=== PATIENT | female | born 1975 | race Caucasian/White ===

== ENCOUNTER 2023-11-07 21:37 | Emergency (ER) | payer OTHER, SELFPAY ==
[2023-11-07 21:39] VITALS: BP 141/85
[2023-11-07 21:58] LABS: % Basophils 0.2 % (0-2); % Eosinophils 0.6 % (0-6); % Immature Granulocytes 0.2 % (0-0.5); % Lymphocytes 22.8 % (20.5-51.1); % Monocytes 10.6 % (1.7-9.3); % Neutrophils 65.6 % (42.2-75.2); Absolute Lymphocytes 1.2 10^3/uL (1.2-3.4); Absolute Monocytes 0.6 10^3/uL (0.1-0.6); Absolute Neutrophils 3.5 10^3/uL (1.4-6.5); Hematocrit 33.6 % (37.0-47.0); Hemoglobin 11.7 g/dL (12.0-16.0); Mean Corp Hgb Conc. 34.8 g/dL (33.0-37.0); Mean Corpuscular Hgb 29.9 pg (27.0-31.0); Mean Corpuscular Volume 85.9 fL (81.0-99.0); Mean Platelet Volume 10.1 fL (7.4-10.4); Nucleated Red Blood Cells % 0 %; Platelet Count 199 10^3/uL (130-400); Red Blood Cell Count 3.91 10^6/uL (4.20-5.40); Red Cell Dist. Width 12.7 % (11.5-14.5); White Blood Cell Count 5.4 10^3/uL (4.8-10.8)
[2023-11-07 22:12] LABS: COVID-19 Antigen Negative (Negative)
[2023-11-07 22:28] LABS: ALT (SGPT) 16 U/L (0-35); AST (SGOT) 22 U/L (14-36); Albumin 4.1 g/dl (3.5-5.0); Alkaline Phosphatase 59 U/L (38-126); Blood Urea Nitrogen 18 mg/dl (7-17); Calcium 9.3 mg/dl (8.4-10.2); Carbon Dioxide 24 mmol/L (22-30); Chloride 105 mmol/L (98-107); Glucose 100 mg/dl (70-99); Potassium 3.5 mmol/L (3.5-5.1); Sodium 135 mmol/L (135-145); Total Bilirubin 0.2 mg/dl (0.2-1.3); Total Protein 7.4 g/dl (6.3-8.2); eGFR > 60.00
--- NOTE | 2023-11-08 01:29 | ED.GENMED ---
History of Present Illness
General
Chief Complaint: Fever
Source: patient
Exam Limitations: none
Time Seen by Provider: 11/08/23 01:18
Travel History
Have you had any contact with someone who has COVID-19?: No
Do you have any symptoms of coronavirus? Fever > 100 degrees, chills, cough, shortness of breath, sore throat, loss of taste or smell, muscle aches, or headache?: Yes
Symptoms:: fever, cough
History of Present Illness
History of Present Illness:
This is a 48 year old female that comes in with multiple complaints. State that she started on Thursday with a cough. she started with a fever and the fever has been up and down. State that the cough is worse and she has left sided chest
pain. Sates that she feels that is is hard to breath and her Fever was 104.5 today. State that she used her nebulizer at 5pm and her rescue inhaler at 9pm just to get here. States that she feels SOB with the chest pain, has a headache and just feels
cold but no shaking. Denies any abd pain, nausea, vomiting, diarrhea, dizziness, urinary burning.
Past History
Past History
ED Past Medical History: Asthma, Cancer (Thyroid), HTN and Other (Migraines, Vertigo, [place] Palsy,IBS, )
ED Past Surgical History: Gynecological (partial hysterectomy) and Other (Thyroidectomy)
Social History
Tobacco: Former smoker
Alcohol: None
Personal: Single
Living: alone
Review of Systems
Review of Systems
All Other Systems: ROS reviewed and negative except as documented in HPI and ROS
Constitutional: Reports fever; Denies chills
EENT: Reports no symptoms
Respiratory: Reports cough and trouble breathing
Cardiac: Reports chest pain
ABD/GI: Reports no symptoms; Denies abdominal pain, nausea, vomiting or diarrhea
: Reports no symptoms; Denies dysuria, frequency or urgency
Musculoskeletal: Reports no symptoms
Skin: Reports no symptoms
Neurological: Reports headache; Denies dizzy
Psychiatric: Reports no symptoms
Phy Exam
General Physical Exam
General Presentation: no apparent distress
General age: appears stated age
General Skin: warm and dry
General Habitus: normal
General Hydration: appears well hydrated
ENT Exam
ENT Exam: TM's normal, pharynx normal and neck supple
Eye Exam
Eye Exam: EOMI
Cardiovascular Exam
Cardiovascular Exam: regular rate/rhythm, no edema, no murmur and normal peripheral pulses
Pulmonary Exam
Pulmonary Exam: no respiratory distress, no rales, chest non tender, no crackles, no rhonchi and other (Insp wheezing with cough that is course)
Gastrointestinal Exam
Gastrointestinal Exam: normal bowel sounds, non tender, soft, no organomegaly, no pulsatile mass and non distended
Musculoskeletal Exam
Musculoskeletal Exam: full ROM and no edema
Skin Exam
Skin Exam: normal color, warm/dry, no rash and no petechia
Psychiatric Exam
Psychiatric Exam: normal mood/affect
Course
Orders/Labs/Results
Orders:
Orders
11/07/23 21:43
CR Chest - 2 Views Urgent
Comment:
Reason For Exam: suspected infection
11/07/23 21:50
COVID-19 Antigen Urgent
Source: Nasal Swab
Complete Blood Count/With Diff Urgent
Comprehensive Metabolic Panel Urgent
Influenza A+B Rapid Molecular Urgent
JACOB Source: Nasal Swab
Specimen Description:
11/08/23 01:29
Electrocardiogram (*1) Urgent
Reason for Study: Chest Pain
EKG- Treatment ONCE
Acetaminophen [Tylenol] 1,000 mg PO NOW STA
Dexamethasone Sod Phosphate [Decadron] 20 mg IV NOW STA
Ipratropium/Albuterol Sulfate [Duoneb] 3 ml INH R NOW ONE
11/08/23 01:48
Lactate Level [Lactic Acid] Urgent
Troponin I Urgent
Blood Culture Q30M
JACOB Source: Blood/Venous
Specimen Description:
11/08/23 02:06
Urinalysis Reflex To Culture Urgent
Date Specimen was Collected: 11/08/23
Time Specimen was Collected: 02:04
Blood Culture Q30M
JACOB Source: Blood/Venous
Specimen Description:
11/08/23 02:49
Doxycycline [Vibramycin] 100 mg PO NOW STA
Abnormal Lab Results
11/07/23
21:50
RBC 3.91 L 10^6/uL
(4.20-5.40)
Hgb 11.7 L g/dL
(12.0-16.0)
Hct 33.6 L %
(37.0-47.0)
Monocytes % 10.6 H %
(1.7-9.3)
BUN 18 H mg/dl
(7-17)
Glucose 100 H mg/dl
(70-99)
11/07/23 21:50
11/07/23 21:50
H/H slightly low. Slight Dehydration. Glucose nonfasting. Troponin <0.012, COVID and Influenza negative, Urine negative for infection.
Lactic acid 0.8
Vital Signs
Initial and Last Documented VS:
Initial Vital Signs
Temp Pulse Resp BP Pulse Ox
98.4 F 84 16 141/85 98
11/07/23 21:39 11/07/23 21:39 11/07/23 21:39 11/07/23 21:39 11/07/23 21:39
Last Documented Vital Signs
Temp Pulse Resp BP Pulse Ox
100.7 F H 98 16 120/78 95
11/08/23 01:49 11/08/23 02:50 11/08/23 02:50 11/08/23 02:50 11/08/23 02:50
MDM/Problems Addressed
Differential Diagnosis Includes:
PNA, Asthma exacerbation,
MDM/Problems Addressed:
This is a 48 year old female that comes in with multiple complaints. States that she started on Thursday with a cough, a fever ant this has been going up and down since. States that she has trouble breathing and left sided chest pain.
States that she did a nebulizer at home and used her Rescue inhaler at 9pm to get here.
Will get labs, COVID, Influenza. Neb treatment. Steroids, IV fluids and Tylenol
Back into see patent. Explained that her WBC are normal she is negative for COVID and Influenza and her Troponin is normal. Explained that there may be a little Pneumonia at the right base. Will place patient on antibiotics and give her a
prescription for Steroids for the next 5 days. Patient can use her Nebulizer at home and her Inhalers. Follow up with the family doctor or the consumer education specialist. Patient to return with any concerns.
Chronic conditions affecting care: Asthma
Acute Exacerbation and/or Progression of Chronic Illness: Asthma
*Pulse Oximetry
Patient hypoxic: no
*EKG
Interpreted by ED Provider?: Yes
Heart Rate: 88
Rate: normal
Rhythm: sinus
[place]: normal axis
Interval: normal interval
QRS Pattern: normal QRS
Ischemia: no ischemia
*Critical Care Note
Total Time (30-74mins, 75-104mins- exclusive of procedures): Not Applicable
ED Attending Note
-
Portions of this chart may have been created with voice recognition software.� Occasional wrong word or��sound alike� substitutions may have occurred due to the inherent limitations of voice recognition software.
Discharge Plan
Departure
Patient Disposition: Home (Routine Discharge)
Date of Disposition: 11/08/23
Time of Disposition: 02:51
Patient with high blood pressure during this ER visit?: Yes
Condition: Good
Covid-19: Negative COVID-19
Discharge Problem:
Pneumonia involving right lung
Instructions: Pneumonia, Adult (DC), Fever, Adult (DC), BLOOD PRESSURE
Prescriptions:
New
doxycycline hyclate 100 mg capsule
100 mg PO BID Qty: 19 0RF
prednisone 20 mg tablet
40 mg PO DAILY Qty: 10 0RF
No Action
multivitamin [Daily Vitamin] 1 EACH tablet
1 ea PO DAILY
ergocalciferol (vitamin D2) 400 UNIT tablet
400 unit PO DAILY
verapamil 120 MG tablet
120 mg PO HS
losartan 100 MG tablet
100 mg PO DAILY
fluticasone propionate 1 SPRAY spray,suspension
2 spray intranasal DAILY
levothyroxine 112 MCG tablet
112 mcg PO DAILY
lubiprostone 24 MCG capsule
24 mcg PO BID
vit B complex 100 combo no.2 [B-100 Complex] 100 MG tablet extended release
100 mg PO DAILY
Activity Restrictions/Additional Instructions:
As discussed, your blood work shows that your White blood cell count is normal. You are negative for COVID and influenza. There is a possible early Pneumonia at the right base. You have had two prescriptions sent to your Pharmacy. The first is for
Doxycycline 100mg BID, and the second is a steroid to help decrease any inflammation. Please increase your water intake to 8-8oz glasses daily. Follow up with the family doctor or your consumer education specialist. Use your Nebulizer every 4 hours as needed
for SOB and wheezing. Tylenol as needed for any fever. IF YOU HAVE INCREASED SHORTNESS OF BREATH, OR YOU HAVE ANY OTHER CONCERNS PLEASE RETURN TO THE EMERGENCY ROOM.
Interventions
Interventions:
*Risk Screen - Suicide Last Done: 11/07/23 21:39
*General Assessment Last Done: 11/08/23 01:37
*Neglect/Abuse Screening Last Done: 11/07/23 21:39
ED- Fall Risk Assessment Last Done: 11/08/23 02:12
*ED COVID-19 Vaccine History Last Done: 11/08/23 01:23
ED- Neurological Assessment Last Done: 11/08/23 02:12
ED-Skin Assessment Last Done: 11/08/23 02:12
Discharge Date and Time
Print Language: ARABIC
[2023-11-08 01:37] VITALS: BMI 22.7
[2023-11-08 01:49] VITALS: BP 142/89
[2023-11-08] MEDS: DECADRON 20 MG IV (01:49)
[2023-11-08] MEDS: TYLENOL 1000 MG PO (01:49)
[2023-11-08] MEDS: DUONEB 3 ML INH (02:08)
[2023-11-08 02:09] LABS: Lactic Acid 0.8 mmol/L (0.7-2.0)
[2023-11-08 02:21] LABS: Urine Albumin Negative (Neg - Trace); Urine Bilirubin Negative (Negative); Urine Character Clear (Clear); Urine Color Yellow; Urine Glucose Negative (Negative); Urine Ketone Negative (Negative); Urine Leukocyte Negative (Negative); Urine Nitrite Negative (Negative); Urine Occult Blood Negative (Negative); Urine Specific Gravity 1.015 (<1.030); Urine Urobilinogen Negative (Neg - 1+)
[2023-11-08 02:24] LABS: Troponin I < 0.012 ng/ml
[2023-11-08 02:50] VITALS: BP 120/78
[2023-11-08] MEDS: VIBRAMYCIN 100 MG PO (03:00)
== END 2023-11-08 03:13 | disposition home or self-care (01) ==
LOC: EMR 21:37
PROVIDERS: Clinical Nurse Specialist Family Health; Emergency Medicine; EMERGENCY PHYSICIAN Student in an Organized Health Care Education/Training Program; FAMILY PHYSICIAN Family Medicine
DX: J18.9 Pneumonia, unspecified organism (principal); R51.9 Headache, unspecified; Z11.52 Encounter for screening for COVID-19; I10 Essential (primary) hypertension; J45.909 Unspecified asthma, uncomplicated; K58.9 Irritable bowel syndrome, unspecified; G51.0 Bell's palsy; Z87.891 Personal history of nicotine dependence; Z85.850 Personal history of malignant neoplasm of thyroid; Z88.6 Allergy status to analgesic agent; Z91.041 Radiographic dye allergy status
CPT/HCPCS: 99284; 96374; 94640; 71046; 80053; 81003; 83605; 84484; 85025; 87040; 87502; 87811; 93005